=== PATIENT | female | born 1980 | race Two or more races ===

== ENCOUNTER 2024-01-25 09:22 | Emergency (ER) | payer OTHER ==
[~2024-01-25] VITALS: Ht 167.6 cm; Wt 68.0 kg
[2024-01-25 09:48] VITALS: TEMP 97.9
[2024-01-25 09:50] VITALS: PULSE 103; RESP 16; O2SAT 98
[2024-01-25] MEDS: ONDANSETRON HCL 4 MG/2 ML VIAL IV ONE (10:01)
[2024-01-25] MEDS: KETOROLAC TROMETH 30 MG/ML 1ML VIAL IV ONE (10:01)
[2024-01-25] MEDS: MORPHINE SULFATE INJ 2 MG/ml SYRG IV ONE (10:02)
[2024-01-25] MEDS: SODIUM CHLORIDE 0.9% 1,000 ML IV ONE (10:11)
[2024-01-25 10:57] LABS: Basophils # (auto) 0.1 10 ^3/uL (0-0.2); Basophils % (auto) 0.6 % (0.0-2.0); Eosinophils # (auto) 0.2 10 ^3/uL (0-0.8); Eosinophils % (auto) 2.6 % (0.0-7.0); Hematocrit 40.8 % (36.0-46.0); Hemoglobin 13.8 g/dL (12.2-16.2); Lymphocytes # (auto) 1.8 10 ^3/uL (0.4-5.4); Lymphocytes % (auto) 20.3 % (10.0-50.0); Mean Corpuscular Hemoglobin 28.9 pg (28.0-32.0); Mean Corpuscular Hgb Conc. 33.9 g/dL (32.0-36.0); Mean Corpuscular Volume 85.3 fL (80.0-100.0); Monocytes # (auto) 0.6 10 ^3/uL (0-1.3); Monocytes % (auto) 6.4 % (0.0-12.0); Neutrophils # (auto) 6.2 10 ^3/uL (1.6-8.6); Neutrophils % (auto) 70.1 % (37.0-80.0); Platelet Count (auto) 286 10^3/uL (140-450); Red Blood Cells 4.78 10^6/uL (4.0-5.20); Red Cell Distribution Width 14.4 % (11.8-14.3); White Blood Cell 8.8 10^3/uL (4.4-10.8)
[2024-01-25] MEDS ORDERED: fentaNYL CITRATE 100 MCG/2 ML VL IV ONE (11:00)
[2024-01-25 11:11] LABS: Alanine Aminotransferase 38 U/L (7-40); Albumin 4.7 g/dL (3.2-4.8); Alkaline Phosphatase 56 U/L (46-116); Anion Gap 13 (5-15); Aspartate Aminotransferase 53 U/L (13-40); BUN/Creatinine Ratio 14.8 (10.0-20.0); Bilirubin, Total 0.7 mg/dL (0.2-1.0); Blood Urea Nitrogen 9 mg/dL (9-23); Calcium 9.9 mg/dL (8.7-10.4); Carbon Dioxide 17 mmol/L (20-31); Chloride 108 mmol/L (98-107); Glucose 77 mg/dL (74-106); Potassium 3.8 mmol/L (3.5-5.1); Sodium 138 mmol/L (136-145); Total Protein 7.5 g/dL (5.7-8.2)
[2024-01-25] MEDS ORDERED: LORazepam 2MG/ML-1ML VIAL IV ONE (11:15)
[2024-01-25] MEDS: diazePAM 5 MG TAB PO ONE (11:22)
[2024-01-25] MEDS: HYDROmorphone HCL 2 MG/ML VL/or syr IV ONE (12:23)
[2024-01-25 12:24] LABS: Urine Bacteria None Seen /hpf (None Seen)
[2024-01-25 12:52] LABS: Urine Blood Negative /uL (Negative); Urine Clarity Clear (Clear); Urine Color Yellow (Yellow); Urine Mucus FEW (None Seen); Urine Protein, UAD TRACE (Negative); Urine Specific Gravity 1.029 (1.001-1.035); Urine Urobilinogen Normal (Negative); Urine WBC <1 /hpf (0 - 5); Urine pH 5.5 (5.0-9.0)
[2024-01-25] MEDS ORDERED: ACET650T12 PO (14:13)
[2024-01-25] MEDS ORDERED: IBUP-1454 PO (14:13)
[2024-01-25 15:00] VITALS: BP 107/71; PULSE 84; RESP 18; O2SAT 97
== END 2024-01-25 15:31 | disposition home or self-care (01) ==
LOC: ER 09:22 → EDBD 09:22 → ER 15:31
DX: R10.31 Right lower quadrant pain (principal); Z88.5 Allergy status to narcotic agent; V89.2XXA Person injured in unspecified motor-vehicle accident, traffic, initial encounter; Y93.89 Activity, other specified; Y92.89 Other specified places as the place of occurrence of the external cause; Y99.8 Other external cause status
CPT/HCPCS: 36415; 70450; 71250; 72125; 72131; 74176; 80053; 81001; 85025; 96361; 96374; 96375; 99285; J1171; J1885; J2270; J2405; J7030